=== PATIENT | male | born 1950 | race Caucasian/White ===

== ENCOUNTER 2016-04-03 21:15 | Emergency (ER) | payer OTHER ==
[~2016-04-03] VITALS: Ht 165.1 cm; Wt 71.3 kg
[~2016-04-03 21:15] MED LIST changes: -DILAUDID2 MG PO; -KEFLEX500 MG PO; -ZOFRAN4 MG PO
[2016-04-04 00:30] VITALS: BP 148/88
[2016-04-04 00:53] LABS: HEMATOCRIT 43.9 % (38.0-50.0); MCH 33.5 PG (29.0-34.0); MCHC 35.5 G/DL (30.0-36.0); MCV 94.2 FL (86-99); MEAN PLAT.VOLUME 9.2 uM^3 (9.0-12.4); PLATELET COUNT 210 K/uL (156-360); RBC DIS.WIDTH-CV 11.8 % (11.8-14.6); RBC DIS.WIDTH-SD 39.9 % (39-53); RED BLOOD COUNT 4.66 M/uL (4.00-5.50); WHITE BLOOD COUNT 11.6 K/uL (4.1-10.2)
[2016-04-04 00:59] LABS: CHLORIDE 102 mEq/L (99-109); POTASSIUM 4.2 mEq/L (3.7-5.4); SODIUM 136 mEq/L (136-147)
[2016-04-04 01:02] LABS: GLUCOSE 125 mg/dL (70-99)
[2016-04-04 01:03] LABS: ANION GAP 11 MEQ/L (2-14)
[2016-04-04 01:04] LABS: TOTAL BILIRUBIN 0.6 mg/dL (0.0-1.0)
[2016-04-04 01:05] LABS: ALKALINE PHOSPHATASE 60 IU/L (3-129)
[2016-04-04 01:06] LABS: GFR ESTIMATE (CALCULATED) > 59 mL/min/
[2016-04-04 01:07] LABS: DIRECT BILIRUBIN 0.2 mg/dL (0.0-0.3); UREA NITROGEN (BUN) 9 mg/dL (9-23)
[2016-04-04 01:09] LABS: LIPASE 40 U/L (1.0-51.0)
[2016-04-04] MEDS ORDERED: ZOFRAN4 MG PO (01:24)
[2016-04-04] MEDS ORDERED: KEFLEX500 MG PO (01:24)
[2016-04-04] MEDS ORDERED: DILAUDID2 MG PO (01:24)
== END 2016-04-04 01:41 | disposition home or self-care (01) ==
LOC: EME 21:15
PROVIDERS: Emergency Medicine
DX: N20.0 Calculus of kidney (principal); R10.9 Unspecified abdominal pain; I10 Essential (primary) hypertension; Z87.442 Personal history of urinary calculi; Z87.891 Personal history of nicotine dependence; Z91.040 Latex allergy status; Z88.3 Allergy status to other anti-infective agents; Z88.8 Allergy status to other drugs, medicaments and biological substances
CPT/HCPCS: 74176; 80048; 80076; 81003; 83690; 85027; 87086; 99281; 99284; J1170

== ENCOUNTER → 2016-04-03 | Outpatient (CLI) | payer OTHER ==
[~2016-04-03] VITALS: Ht 166.4 cm; Wt 69.8 kg
[~2016-04-03] MED LIST: ADVIL,NUPRIN,M200 MG PO; BABY ASPIRIN81 M1 PO; DILAUDID2 MG PO; DILTIAZEM 24HR180 MG PO; FLECAINIDE ACE100 MG PO; KEFLEX500 MG PO; OMEGA 3 1,0001 EACH PO; PRADAXA150 MG PO; VIGAMOX 0.60 DROP/3 LEFT EYE; ZESTRIL5 MG PO; ZOFRAN4 MG PO; [UNRECOGNIZED DRUG - OTHER] OP
== END | disposition home or self-care (01) ==
LOC: AMB 09:30
PROC: 0TF4XZZ Fragmentation in Left Kidney Pelvis, External Approach (ICD-10-PCS; principal; 2016-04-03)
DX: N20.0 Calculus of kidney (principal); I48.92 Unspecified atrial flutter; I10 Essential (primary) hypertension; I48.91 Unspecified atrial fibrillation
CPT/HCPCS: 74000; 80048; 85025; J2250; J3010

== ENCOUNTER 2016-05-05 10:18 | Day surgery (SDC) | payer OTHER, BC ==
[~2016-05-05] VITALS: Ht 167.6 cm; Wt 68.2 kg
[~2016-05-05 10:18] MED LIST changes: +DILAUDID2 MG PO; +KEFLEX500 MG PO; +ZOFRAN4 MG PO
[2016-05-05 10:56] VITALS: BP 134/81
[2016-05-05] MEDS ORDERED: FLOMAX0.4 MG PO (11:06)
[2016-05-05 14:15] VITALS: BP 148/90
[2016-05-05 15:55] VITALS: BP 148/84
== END 2016-05-05 16:02 | disposition home or self-care (01) ==
LOC: SDC 10:18
PROVIDERS: Urology
PROC: 0TCB8ZZ Extirpation of Matter from Bladder, Via Natural or Artificial Opening Endoscopic (ICD-10-PCS; principal; 2016-05-05)
DX: N21.0 Calculus in bladder (principal); I10 Essential (primary) hypertension; Z87.891 Personal history of nicotine dependence
CPT/HCPCS: 74420; 82365 90; C1758; C1876; J0690; J1100; J1170; J1580; J2250; J2405; J3010